=== PATIENT | female | born 1975 | race Caucasian/White ===

== ENCOUNTER 2017-10-18 10:04 | Day surgery (SDC) | payer OTHER ==
[~2017-10-18] VITALS: Ht 157.5 cm; Wt 79.8 kg
[~2017-10-18 10:04] MED LIST: MOTRIN800 MG PO; NORCO 5/3251 TABLET PO; SYNTHROID50 MCG PO
[2017-10-18 10:35] VITALS: BP 110/64
[2017-10-18 14:00] VITALS: BP 123/58
[2017-10-18 14:51] VITALS: BP 112/60
== END 2017-10-18 15:05 | disposition home or self-care (01) ==
LOC: SDC 10:04
PROC: 01N50ZZ Release Median Nerve, Open Approach (ICD-10-PCS; principal; 2017-10-18)
DX: G56.02 Carpal tunnel syndrome, left upper limb (principal); E03.9 Hypothyroidism, unspecified
CPT/HCPCS: J2250; S0020

== ENCOUNTER 2017-11-15 10:40 | Day surgery (SDC) | payer OTHER ==
[~2017-11-15] VITALS: Ht 157.5 cm; Wt 79.8 kg
[~2017-11-15 10:40] MED LIST changes: +ALEVE220 MG PO; +MIRENA1 EACH IY; +TYLENOL EXTRA500 MG PO
[2017-11-15 11:42] VITALS: BP 131/71
[2017-11-15 15:19] VITALS: BP 135/67
[2017-11-15 16:15] VITALS: BP 123/88
== END 2017-11-15 16:35 | disposition home or self-care (01) ==
LOC: SDC 10:40
DX: M20.12 Hallux valgus (acquired), left foot (principal); M20.42 Other hammer toe(s) (acquired), left foot; E03.9 Hypothyroidism, unspecified
CPT/HCPCS: C1713; J0131; J0690; J1100; J1170; J2250; J2405; J3010; S0020

== ENCOUNTER 2017-12-20 13:54 | Day surgery (SDC) | payer OTHER ==
[~2017-12-20] VITALS: Ht 160 cm; Wt 80.0 kg
[2017-12-20 14:24] VITALS: BP 123/80
[2017-12-20 16:05] VITALS: BP 104/67
[2017-12-20 17:00] VITALS: BP 124/76
== END 2017-12-20 17:00 | disposition home or self-care (01) ==
LOC: SDC 13:54
PROC: 01N50ZZ Release Median Nerve, Open Approach (ICD-10-PCS; principal; 2017-12-20)
DX: G56.01 Carpal tunnel syndrome, right upper limb (principal); E03.9 Hypothyroidism, unspecified; Z82.49 Family history of ischemic heart disease and other diseases of the circulatory system; Z83.3 Family history of diabetes mellitus
CPT/HCPCS: S0020